=== PATIENT | male | born 1990 | race Caucasian/White ===

== ENCOUNTER 2024-05-25 09:31 | Emergency (ER) | payer SELFPAY ==
[2024-05-25 09:34] VITALS: BP 117/69; PULSE 91; TEMP 36.7; O2SAT 99; BMI 54.8
[2024-05-25] MEDS: LIDOCAINE HCL 1% 100 MG/10 ML MDV INJ (10:19)
[2024-05-25] MEDS: SURGIFOAM GEL SPONGE SIZE 100 1 EACH TOPICAL (10:19)
--- NOTE | 2024-05-25 10:25 | ED.WOUNDLAC1 ---
HPI - Wound/Laceration General Chief Complaint: Wound/Laceration Stated Complaint: varicose vein bleeding since Saturday Time Seen by Provider: 05/25/24 09:43 Source: patient Mode of arrival: ambulance Limitations: no limitations History of Present Illness HPI narrative: 33-year-old male presents for a bleeding varicose vein. Its on his left lower leg laterally and it has been bleeding on and off for the last few days. No specific injury. He does not see a vascular surgeon. He does not take blood thinners. Related Data Home Medications ?Medication ?Instructions ?Recorded ?Confirmed No Known Home Medications 05/25/24 05/25/24 Allergies Allergy/AdvReac Type Severity Reaction Status Date / Time No Known Drug Allergies Allergy Verified 05/25/24 09:37 Review of Systems ROS Narrative A ten point review of systems is negative except as noted above. PFSH PFSH Social History Little interest or pleasure in doing things: not at all Feeling down, depressed, or hopeless: not at all Exam Narrative Exam Narrative: Nurses note and vital signs reviewed and patient is not hypoxic. General: The patient appears well and in no apparent distress. Patient is resting comfortably on cart. Skin: Warm, dry, no pallor noted. There is no rash noted. Head: Normocephalic, atraumatic Eye: Normal conjunctiva, no drainage Ears, Nose, Mouth, and Throat: oral mucosa is moist. Nares patent. Cardiovascular: Regular Rate and Rhythm Respiratory: Patient is in no distress, no accessory muscle use, lungs are clear to auscultation, no wheezing, rales or rhonchi GI: Morbidly obese Musculoskeletal: Left lower leg has a circumferential dressing present. Upon removal there is an excoriation adjacent to the varicose vein. Initially no active bleeding. Neurological: A&O, normal speech Psychiatric: Cooperative Constitutional Vital Signs, click to edit/add: Last Vital Signs Temp 98.0 F 05/25/24 09:34 Pulse 91 H 05/25/24 09:34 Resp 18 05/25/24 09:34 BP 117/69 05/25/24 09:34 Pulse Ox 99 05/25/24 09:34 O2 Del Method Room Air 05/25/24 09:34 Course Vital Signs Vital signs: Vital Signs Temperature 98.0 F 05/25/24 09:34 Pulse Rate 91 H 05/25/24 09:34 Respiratory Rate 18 05/25/24 09:34 Blood Pressure 117/69 05/25/24 09:34 Pulse Oximetry 99 05/25/24 09:34 Oxygen Delivery Method Room Air 05/25/24 09:34 Temperature 98.0 F 05/25/24 09:34 Pulse Rate 91 H 05/25/24 09:34 Respiratory Rate 18 05/25/24 09:34 Blood Pressure 117/69 05/25/24 09:34 Pulse Oximetry 99 05/25/24 09:34 Oxygen Delivery Method Room Air 05/25/24 09:34 MDM - Wound/Laceration MDM Narrative Medical decision making narrative: He was instructed to follow-up with Dr. Vaca. Treatment diagnosis and follow-up were discussed with the patient. Differential Diagnosis Differential diagnosis: Likely laceration and avulsion of skin Discharge Plan Discharge Chief Complaint: Wound/Laceration Clinical Impression: Varicose vein of leg Patient Disposition: Home, Self-Care Time of Disposition Decision: 10:23 Condition: Good Mode of Transportation: Private Vehicle Prescriptions / Home Meds: No Action No Known Home Medications Print Language: [place] Instructions: Laceration (ED) Referrals: Will Vaca MD [Physician] - 1 week Physician,Non-Staff, [Primary Care Provider] - 1 week Procedures ED Procedure Instructions Procedures Procedures: The following procedure was performed by me. Local infiltration was carried out with 1% lidocaine without epinephrine resulting in complete skin anesthesia. The area was prepped with Betadine x 3 and draped sterilely and three 4-0 Ethilon sutures were placed resulting in good hemostasis. During the procedure there was some bleeding, easily controlled with pressure. He tolerated the procedure well.
[2024-05-25 10:57] LABS: Basophils Absolute Auto 0.1 10^3/uL (0.0-0.1); Basophils Percent Auto 0.4 % (0.2-2.0); Eosinophils Absolute Auto 0.1 10^3/uL (0.0-0.7); Eosinophils Percent Auto 0.7 % (0.9-7.0); Hematocrit 34.8 % (42.0-54.0); Hemoglobin 11.4 g/dL (14.0-18.0); Immature Granulocytes Abs Auto 0.06 10^3/uL (0.00-0.03); Immature Granulocytes Pct Auto 0.3 % (0.0-0.5); Lymphocytes Absolute Auto 1.4 10^3/uL (1.2-3.8); Lymphocytes Percent Auto 7.7 % (20.5-60.0); Mean Corpuscular HGB Conc 32.8 g/dL (29.9-35.2); Mean Corpuscular Hemoglobin 31.1 pg (25.9-34.0); Mean Corpuscular Volume 94.8 fL (80.0-94.0); Mean Platelet Volume 9.9 fL (9.5-13.5); Monocytes Absolute Auto 0.9 10^3/uL (0.3-0.8); Monocytes Percent Auto 4.9 % (1.7-12.0); Neutrophils Absolute Auto 15.6 10^3/uL (1.4-6.5); Platelet Count 364 10^3/uL (150-450); Red Blood Count 3.67 10^6/uL (4.70-6.10); Red Cell Distribution Width 13.4 % (11.0-15.0); White Blood Count 18.2 10^3/uL (4.0-11.0)
[2024-05-25] MEDS: 0.9 % SODIUM CHLORIDE 1,000 ML 1000 ML IV (10:58)
[2024-05-25 11:00] VITALS: BP 124/58
[2024-05-25 11:05] LABS: Anion Gap 12.3; BUN Creatinine Ratio 13.8; Calcium 8.7 mg/dL (8.5-10.1); Carbon Dioxide 27.6 mmol/L (21.0-32.0); Chloride 104 mmol/L (98-107); Estimated GFR (African America >60 (>=60 mL/min/1.73m^2); Estimated GFR (Non-African Ame >60 (>=60 mL/min/1.73m^2); Glucose 114 mg/dL (74-106); Potassium 3.9 mmol/L (3.5-5.1); Sodium 140 mmol/L (136-145)
== END 2024-05-25 12:07 | disposition home or self-care (01) ==
PROVIDERS: Emergency Provider Emergency Medicine; Family Provider Family Medicine
DX: I83.892 Varicose veins of left lower extremity with other complications (principal); E66.01 Morbid (severe) obesity due to excess calories; Z68.43 Body mass index [BMI] 50.0-59.9, adult
CPT/HCPCS: 12001; 36415; 80048; 85025; 99284